=== PATIENT | male | born 2000 | race African-American/Black ===

== ENCOUNTER 2020-06-10 14:51 | Emergency (ER) | payer OTHER, SELFPAY ==
--- NOTE | 2020-06-10 15:03 | ER_ITS ---
This report was moved to the correct visit, [id number] on 06/18/20. Original report was signed by Azul Martins APN on 06/10/20 1533. HPI - Eye Problem General Stated complaint: eye problems Time Seen by Provider: 06/10/20 15:18 Source: patient and RN notes reviewed Mode of arrival: ambulatory Limitations: no limitations History of Present Illness HPI Narrative: 20-year-old male presents with concern for eye redness, swelling, drainage that is not improving despite antibiotic ointment. Reports 4 days ago he was seen in a another urgent care and was given erythromycin ointment. Reports he has been using it as directed, however has not seen any improvement. He reports mild worsening of symptoms. He denies any vision changes, eye pain, irritation. Reports watery drainage. Denies fever, headache, eye pressure. MD chief complaint: eye redness Related Data Home Medications Medication Instructions Recorded Confirmed erythromycin 06/10/20 Allergies Allergy/AdvReac Type Severity Reaction Status Date / Time peanut Allergy Unknown Verified 06/10/20 15:20 Review of Systems Review of Systems: Narrative: CONSTITUTIONAL: Denies malaise, chills, sweats, or fever. EYES: Denies visual changes. Reports left eye redness, eyelid swelling, watery or discharge. ENT: Denies rhinorrhea, congestion, sinus pain, otalgia or sore throat. MUSCULOSKELETAL: Denies myalgia. NEUROLOGIC: Denies headache. All systems reviewed & are unremarkable except as noted in HPI and below PMFSH Comments At time of signature, agree with nursing past medical, surgical, social and family history. There is no relevant family history pertinent to the presenting complaint Exam Narrative: Exam Narrative: GENERAL: Well-appearing, well-nourished, and in no acute distress. HEAD: Normocephalic, atraumatic. EYES: PERRLA, right conjunctivae clear, and EOMI. No nystagmus. Left sclera and conjunctive a injected, left upper and lower superficial eyelid edema noted, copious drainage noted. ENT: Nares clear, turbinates pink, no rhinorrhea or epistaxis. Mucous membranes moist. TM pearly astudillo with sharp light reflex bilaterally; no tragal tenderness. Oropharynx without erythema or lesions. Tonsils not enlarged and without exudate. NECK: Supple. CHEST: No respiratory distress. Speaks in full sentences. HEART: Regular rate and rhythm. SKIN: Warm, dry, no rash. NEURO: Alert and oriented x3. PSYCH: Normal mood and affect Course Course Emergency Course: Patient was instructed that he should follow-up with an sales associate fishing if symptoms do not improve in the next 24 to 36 hours. Patient is aware of diagnosis, understands and agrees to treatment plan. Anticipatory guidance given. Patient agrees to follow-up as directed and is aware of reasons to seek care at the emergency department. Portions of this record may have been created with voice recognition software Vital Signs Vital signs: Reviewed. MDM - Eye Problem MDM Narrative Medical decision making narrative: Consideration of the following conditions may be warranted for the presenting problem, they are not final diagnoses: Bacterial conjunctivitis, allergic conjunctivitis, viral conjunctivitis, foreign body, blepharitis, chalazion, hordeolum, corneal abrasion, preseptal cellulitis, orbital cellulitis. No evidence of proptosis, ophthalmoplegia, vision loss, pain with eye movement. Exam findings show no acute concerns or changes; patient is non-toxic appearing and is in no distress. Patient is appropriate for outpatient treatment and follow-up. Critical Care Time Critical Care Time Critical Care Time: No Discharge
[2020-06-10 15:09] VITALS: BP 105/58; PULSE 82; RESP 16; TEMP 37.6; O2SAT 100
== END 2020-06-10 15:38 ==
PROVIDERS: Emergency Provider Nurse Practitioner
DX: H10.32 Unspecified acute conjunctivitis, left eye (principal); J45.909 Unspecified asthma, uncomplicated
CPT/HCPCS: 99203; G0463

== ENCOUNTER 2020-08-27 13:16 | Emergency (ER) | payer OTHER, SELFPAY ==
[2020-08-27 13:23] VITALS: BP 114/71; PULSE 75; RESP 16; TEMP 36.7; O2SAT 100
--- NOTE | 2020-08-27 13:23 | ED.MALEGU ---
HPI - Male Genitourinary General Chief complaint: Urogenital-Male Stated complaint: genital irritation Time Seen by Provider: 08/27/20 13:24 Source: patient and RN notes reviewed Mode of arrival: ambulatory Limitations: no limitations History of Present Illness HPI Narrative: 20-year-old male presents to the [facility] with complaints of irritation to his penis for the last 2 to 3 days. states after he used a condom. Denies any penile discharge. No abdominal pain. NO chest pain or. No urinary issues. Denies burning frequency or urgency Patient states that he is concerned about the small sore he has on his penis that is painless Related Data Allergies Allergy/AdvReac Type Severity Reaction Status Date / Time peanut Allergy Unknown Verified 06/10/20 15:20 Review of Systems Review of Systems: All systems reviewed & are unremarkable except as noted in HPI and below Constitutional: Constitutional: Reports no additional constitutional complaints, Denies body ache(s) and Denies chills Eyes: Eyes: Reports no additional eye complaints ENT: Reports system reviewed and no additional complaints, except as documented Cardiovascular: Cardiovascular: Reports no additional cardiovascular complaints Respiratory: Respiratory: Reports no additional respiratory complaints Gastrointestinal: Gastrointestinal: Reports no additional gastrointestinal complaints Genitourinary: Genitourinary: Reports as per HPI, Denies hematuria, Denies oliguria, Reports genital lesions, Denies genital pain, Denies dysuria, Denies flank pain, Denies penile discharge, Denies scrotal swelling, Denies testicular mass, Denies testicular pain, Denies urinary frequency, Denies urinary hesitancy, Denies urinary incontinence and Denies urinary urgency Musculoskeletal: Musculoskeletal: Reports no additional musculoskeletal complaints Integumentary/Breasts: Skin/Breast: Reports system reviewed and no additional complaints, except as docu Neurologic: Reports system reviewed and no additional complaints, except as documented Psychiatric: Psychiatric: Reports no additional psychiatric complaints Allergic/Immunologic: Allergic/Immunologic: Reports no additional allergic/immunologic complaints PMFSH Comments Patient denied any past surgical or medical history. At the time of my signature, I reviewed and agree with the nursing past medical, surgical, social, and family history. There is no relevant family history pertinent to the patient complaint. Exam Const: General: cooperative, healthy appearing, comfortable, no acute distress and well developed Nutritional Appearance: average body habitus Orientation/consciousness: patient oriented x3 Limitations: no limitations HENMT: Head: normal to inspection Eyes: General: appearance normal, both eyes and all related structures Alignment and Position: alignment normal Eyelids: eyelids normal Neck: Neck: normal visual inspection, full ROM, no lymphadenopathy, trachea midline and supple Chest: Chest palpation & inspection: normal inspection of the chest Resp: Effort & Inspection: normal respiratory effort and able to speak in complete sentences Auscultation: clear to auscultation bilaterally Cardio: Rate: regular rate GI: Inspection: normal to inspection GI Palp: No abdominal tenderness : General: Yes no CVA tenderness Male General Exam: Yes erythema, No hernia, No inguinal lymphadenopathy and Yes Genital lesions present Penis: Yes circumcised, No erythematous, No mass, Yes Localized penile swelling present (Inflammation around the lesion) and Yes Genital lesions present (disal left ) Meatus: no meatla discharge and No Erythema at meatus Scrotum: scrotum normal, no inguinal hernias, no masses and no scrotal swelling Testes: Testes normal, no epidiymal masses, no epidiymal tenderness, no testicular mass, no testicular swelling and no testicular tenderness Other: Chaperoned by Vilma Back/Spine/Pelvis: Back: no CVA ten
== END 2020-08-27 13:51 | disposition home or self-care (01) ==
PROVIDERS: Emergency Provider Nurse Practitioner
DX: N48.29 Other inflammatory disorders of penis (principal)
CPT/HCPCS: 81003; 87491; 87591; 87661; 99213; G0463